=== PATIENT | female | born 1980 | race Caucasian/White ===

== ENCOUNTER 2018-07-22 13:20 | Emergency (ER) | payer OTHER ==
[~2018-07-22] VITALS: Ht 152.4 cm; Wt 59.1 kg
[2018-07-22] MEDS ORDERED: KETOROLAC TROMETHAMINE 60 MG/2 ML VIAL IM ONE (16:15)
[2018-07-22 16:30] VITALS: BP 114/72
== END 2018-07-22 16:35 | disposition home or self-care (01) ==
LOC: EMS 13:21
DX: G62.9 Polyneuropathy, unspecified (principal); F12.90 Cannabis use, unspecified, uncomplicated
CPT/HCPCS: 96372; 99283; J1885